=== PATIENT | female | born 1955 | race Caucasian/White ===

== ENCOUNTER 2017-01-03 11:54 | Inpatient (IN) | payer OTHER ==
[~2017-01-03] VITALS: Ht 160 cm; Wt 108.9 kg
[~2017-01-03 11:54] MED LIST: ALEVE220 M1 PO; AMOXICILLIN875 MG PO; ASPIRIN EC81 MG PO; ATENOLOL25 MG PO; CITALOPRAM HBR20 MG PO; CYCLOBENZAPRINE10 MG PO; METFORMIN HCL500 MG PO; MOBIC7.5 MG PO; NORCO 5-325 TA1 EACH PO; PENICILLIN V P500 MG PO; PRAVACHOL20 MG PO; PREVACID30 MG PO; TRAMADOL HCL50 MG PO; TRAZODONE HCL50 MG PO; ULTRAM50 MG PO
[2017-01-21] MEDS ORDERED: ALPRAZOLAM0.25 MG PO (15:03)
[2017-01-21] MEDS ORDERED: VITAMIN D32000 UNIT PO (15:03)
[2017-01-21] MEDS ORDERED: METOPROLOL SUCC25 MG PO (15:04)
--- NOTE | 2017-01-29 08:01 | NUR ---
PREADMIT PT CARE NOTE THIS IS A 61 YEAR OLD FEMALE SCHEDULED FOR A LEFT TOTAL KNEE REPLACEMENT ON 02/04/[address] BLAZE CR. PT STATES SHE LIVES BY HERSELF IN A ONE STORY HOME WITH A HANDICAP RAMP. HAS A TUB/SHOWER COMBINATION WITH A HANDHELD SHOWER HEAD. GOING TO GET A SHOWER SEAT. SHE ALSO STATES SHE IS GETTING A FRONT WHEELED WALKER AT [facility]. IS PLANNING ON DOING OUTPT PT AT [facility], HAS NOT BEEN TO VISIT THEM YET BUT IS GOING TO BEFORE SURGERY. DENIED FURTHER QUESTIONS AT THIS TIME. WILL FOLLOW PT WHILE SHE IS IN THE HOSPITAL. STEPHIE [employer] INTERPRETERSPECIAL EDUCATION AIDE CASE MANAGEMENT
--- NOTE | 2017-02-04 08:52 | NUR ---
02/04/17 0852 Flavia Gonzales 6198-PATIENT ARRIVED TO PACU ON 6L MASK O2 SAT 98% NASAL AIRWAY IN PLACE AND REMOVED. PATIENT AWAKE DENIES PAIN OR NAUSEA. DRESSING TO LEFT KNEE CDI. PALPABLE PEDAL PULSE AND GOOD CAP REFILL WITH WARMTH. PATIENT DENIES PAIN OR NAUSEA. SPINAL LEVEL AT T10.
--- NOTE | 2017-02-04 09:25 | NUR ---
Patient arrives in bed from recovery room. Patient is awake and alert, denies pain. Patient oriented to bed controls and call light. Patient has no sensation from mid thigh to toes on bilat lower extremeties. Cryo cuff in place to left knee. Dressing in place with no drainage. Patient placed on continous pulse ox. O2 sats 92% on Room air. Patiet given ice water and jello. No other requests at this time.
--- NOTE | 2017-02-04 10:02 | NUR ---
PLACED PT ON 2L NC SATS 90% ON ROOM AIR WHEN AWAKE.
--- NOTE | 2017-02-04 10:16 | NUR ---
PATIENT MEDICATED WITH 10MG NUBAIN SUBQ FOR ITCHING. PATIENT GIVEN CLEAR LIQUIDS.
--- NOTE | 2017-02-04 10:33 | NUR ---
Patient eating jello, denies nausea. Patient given menu and instructions to order food.
--- NOTE | 2017-02-04 10:57 | NUR ---
ASSISTED PATIENT TO ORDER LUNCH. PATIENT HAS NO SENSATION FROM MED CALF TO TOES BILAT. PATIENT DENIES PAIN. DRESSING TO LEFT KNEE CDI.
--- NOTE | 2017-02-04 11:16 | NUR ---
patient now has sensation to her toes. Denies pain. Watching tv in no distress.
--- NOTE | 2017-02-04 12:47 | NUR ---
Patient incontinant of urine. Patient still numb in her feet.
--- NOTE | 2017-02-04 13:12 | NUR ---
Patient up to chair. Cony care done, placed patient in clean attends. Changed bed linens and gown. Patient was incontinant of large amount of urine.
--- NOTE | 2017-02-04 14:41 | NUR ---
DR STATON IN TO SEE PATIENT. PATIENT AWAKE AND ALERT, ABLE TO ANSWER ALL QUESTIONS. PATIENT HAS NO PAIN AT THIS TIME. CMS INTACT. PATIENT HAS FULL SENSATION TO LE. DRESSING TO LEFT KNEE CDI.
--- NOTE | 2017-02-04 16:25 | NUR ---
CHECKED ON PT AND SHE WAS DOING FINE, FILLED HER CRY CUFF, AND GOT HER A CUP OF COFFEE. PT WAS IN THE ROOM TALKING TO HER WHEN I LEFT, CALL LIGHT IN REACH
--- NOTE | 2017-02-04 17:44 | NUR ---
PATIENT HAS ASKED FOR PAIN MEDS, THEN REFUSED MED WHEN BROUGHT. PATIENT STATES "I ONLY CAN BARELY FEEL ANYTHING, I RATE MY PAIN ZERO" PATIENT ALSO REFUSES NICOTINE PATCH, HOWEVER ASKS FOR A WHEELCHAIR TO GO OUTSIDE AND SMOKE. DISCUSSED NON SMOKING POLICY WITH PATIENT.
--- NOTE | 2017-02-04 18:32 | NUR ---
PATIENT HAS DONE WELL TODAY. PATIENT HAS BEEN OOB WITH RN AND PT. PATIENT HAS HAD NO PAIN. PATIENT IS TOLERATING A REGULAR DIET.
--- NOTE | 2017-02-04 18:53 | OR ---
[facility] [address] [place], [place] [address] Signed DATE OF OPERATION: 02/04/2017 SURGEON: Telly Huerta MD PREOPERATIVE DIAGNOSIS: DJD, left knee, severe. POSTOPERATIVE DIAGNOSIS: DJD, left knee, severe. PROCEDURE PERFORMED: Left total knee arthroplasty with computer navigation. SURGEON: Telly Huerta MD ASSISTANTS: 1. Nichol Garcia PA-C. 2. KALYANI Shukla. Nichol was present for the entire surgery and was critical for positioning, retraction and wound closure. ANESTHESIA: Spinal. BLOOD LOSS: Minimal. TOURNIQUET TIME: 57 minutes. IMPLANTS: Job Triathlon size 5 with 11 mm insert and a 32 mm patella. BRIEF HISTORY: Eda is a 61-year-old female with progressive worsening of severe arthritis. She had undergone nonoperative treatment including injections, bracing and anti-inflammatories without substantial relief. Risks, benefits and alternatives were discussed with her and she elected to proceed. Electronically Signed By: TELLY HUERTA MD 02/04/17 1853 PATIENT NAME: EDA HUYNH [facility] OPERATIVE REPORT DATE OF : 51 PHYSICIAN: TELLY HUERTA MD REPORT #: [id number] REPORT IS CONFIDENTIAL AND NOT TO BE RELEASED WITHOUT AUTHORIZATION [facility] [address] [place] [id number] Signed DESCRIPTION OF PROCEDURE: Once consent was obtained, she was taken to the operating room after adequate anesthesia and placed on the operating room table. All downside pressure points were well padded. The leg was placed in a well-padded proximal thigh tourniquet. Leg was exsanguinated using an Esmarch bandage. Tourniquet inflated to 270 mmHg. The prior incision for her lateral meniscectomy, which was done many years ago, was marked out. This was quite lateral and elected to go with a straight midline incision crossing the inferior aspect of the old incision at the T. the incision was made and carried through skin and subcutaneous tissue. Median parapatellar arthrotomy was performed. The infrapatellar fat pad was excised and the MCL was elevated to sleeve around the posterior medial corner. The ACL was transected. PCL was left intact. It was in good shape. The menisci were removed. The knee was flexed. The navigation guide was pinned to the distal femur and the femur was registered with the computer. The distal femoral cutting block was then pinned in neutral alignment and the distal femoral cut was made. All osteophytes were removed. The distal femur sized to 5, and a 5-AP cutting block was pinned in line with the epicondylar axis and the anterior posterior chamfer cuts were made. Again, all bone pieces were removed. The attention was turned to proximal tibia. The navigation guide was pinned to the proximal tibia and the cutting block was then pinned to neutral alignment and the cut was made with care taken to protect the patellar tendon and MCL. The bone was removed as were any meniscal remnants. Posterior osteophytes were removed off the femur and posterior release performed. The flexion-extension gaps were sized and found to be symmetric at 11 mm. The trials were then positioned. She was taken through range of motion and found to be stable. The patella was cut, sized and drilled for a 32 patella. The distal femoral holes were drilled. The trial was removed. Proximal tibia was finished using the keel punch and all bone surfaces were pulse lavaged and packed with dry Ray-Milena. Cement was mixed and reached proper consistency. The antibiotic cement was placed on all implants and all bone surfaces. Tibia was impacted in position first and the remaining cement was removed. The polyethylene was snapped into position and the femur was impacted. Once again, any cement was removed. The knee was extended and nicely loaded. The patella was clamped into position. All excess cement was removed. The periarticular soft tissues were injected with 100 mL of ropivacaine and Toradol mixture. The cement was allowed to harden. Once the cement hardened sufficiently, the knee was flexed. The remaining cement was removed using the osteotomes. The knee was pulse lavaged at intervals throughout the procedure. A total of 3 liters of antibiotic irrigation was used. The arthrotomy was then closed using #2 Stratafix, the subcutaneous tissue with #1 Stratafix and niharika for the skin. Knee was dressed with Mepilex Ag dressing, ABD and Jeet wrap. She was awakened and taken to the recovery room in satisfactory condition. All sponge, needle, and instrument counts were correct. Electronically Signed By: TELLY HUERTA MD 02/04/17 1360 PATIENT NAME: EDA HUYNH OPERATIVE REPORT DATE OF : 51 PHYSICIAN: TELLY HUERTA MD REPORT #: [id number] REPORT IS CONFIDENTIAL AND NOT TO BE RELEASED WITHOUT AUTHORIZATION [address] [address] Signed Telly Huerta MD BA/MODL /[id number] Electronically Signed By: TELLY HUERTA MD 02/04/17 1853 PATIENT NAME: EDA HUYNH [facility] O[facility] REPORT DATE OF : 51 PHYSICIAN: TELLY HUERTA MD REPORT #: [id number] REPORT IS CONFIDENTIAL AND NOT TO BE RELEASED WITHOUT AUTHORIZATION
--- NOTE | 2017-02-04 19:15 | NUR ---
RECEIVED REPORT FROM RN. PATIENT RESTING COMFORTABLY. DENIES NEEDS AT THIS TIME. CALL LIGHT WITHIN REACH.
--- NOTE | 2017-02-04 19:42 | NUR ---
PT SITTING UP IN BED, WATCHING TV. PT PLEASENT AND VERY TALKATIVE. NO APPARENT DISTRESS AT THIS TIME. TEDS, SCD'S, COLD CRYO CUFF, AND HEEL PROTECTORS IN PLACE. DRESSING IS CLEAN DRY AND INTACT, NO SHADOWING. LOCKED KNEES FLAT IN BED. CONTINUOUS PULSE OXIMETER IN PLACE. PT COMPLAINED OF 3/10 PAIN, STATED "ITS JUST NOW STARTING TO ACHE A LITTLE." GAVE SCHEDULED TORADOL AND OXYCODONE. PT HAS CRACKERS AT BEDSIDE. FRESH ICE WATER GIVEN. CALL LIGHT IN REACH.
--- NOTE | 2017-02-04 21:56 | NUR ---
REFILLED CRYO CUFF.
--- NOTE | 2017-02-05 00:44 | NUR ---
PATIENT IS RESTING COMFORTABLY IN BED, BREATHING IS EVEN AND UNLABORED. O2 SAT IS 95% ON RA, PULSE IS 57. REPORTS 3/10 PAIN IN LEFT KNEE, PRN PAIN MEDICATION GIVEN PER EMAR. DENIES OTHER NEEDS AT THIS TIME. ALL ORDERS IN PLACE, CRYOCUFF STILL HAS ICE IN IT. CALL LIGHT WITHIN REACH.
--- NOTE | 2017-02-05 01:58 | NUR ---
PT APPEARED TO BE SLEEPING WHEN ENTERING ROOM, WOKE EASILY TO RN'S VOICE. PT REPORTS 2/10 PAIN, STATES "ITS BETTER NOW, BUT I CAN STILL KIND OF FEEL IT," AND POINTED AT HER LEFT UPPER THIGH. GAVE SCHEDULED TORADOL AND OXYCODONE FOR PAIN. PT UP TO BATHROOM TO VOID, TOLERATED AMBULATING WELL WITH FWW AND STANDBY ASSIST, STEADY ON FEET. PT BACK IN BED. ALL DR CR ORDERS IN PLACE. GAVE FRESH ICE WATER. CALL LIGHT IN REACH.
--- NOTE | 2017-02-05 02:38 | NUR ---
PATIENT IS RESTING COMFORTABLY IN BED, BREATHING IS EVEN AND UNLABORED ON NA. O2 SAT IS 95%. REPORTS 2/10 PAIN AFTER AMBULATION TO BATHROOM WITH RN AMEE. DENIES NEEDS AT THIS TIME. ASSESSMENT DONE. ALL ORDERS IN PLACE, SATISFACTORY AMOUNT OF ICE IN CRYOCUFF, CALL LIGHT WITHIN REACH.
--- NOTE | 2017-02-05 02:41 | NUR ---
GAVE 12.25 MG OF BENEDRYL DUE TO PATIENT REPORTING MILD ITCHING. WILL MONITOR FOR CONTINUED ITCHING.
--- NOTE | 2017-02-05 03:44 | NUR ---
PATIENT REPORTING 0/10 PAIN. BREATHING IS EVEN AND UNLABORED WITH 14 BREATHES PER MINUTE, O2 SAT IS 95% ON RA, PULSE IS 67. DENIES NEEDS AT THIS TIME. ALL ORDERS IN PLACE, CALL LIGHT WITHIN REACH.
--- NOTE | 2017-02-05 05:47 | NUR ---
PATIENT'S NIGHT WAS UNEVENTFUL. SHE HAS BEEN RESTING COMFORTABLY IN BED THROUGHOUT SHIFT. VSS, PAIN HAS BEEN WELL CONTROLLED WITH SCHEDULED AND PRN MEDICATIONS. PAIN WAS REPORTED NO HIGHER THAN A 3 IN LEFT KNEE ALL NIGHT. PATIENT REPORTED ITCHING X1, PRN DOSE OF BENEDRYL GIVEN WITH ADEQUATE RELIEF. SHE IS TOLERATING AMBULATION TO BATHROOM WELL WITH SBA/FWW/NON-SLIP SOCKS. DRESSING REMAINS CDI, CMS INTACT. NO COMPLAINTS OF NAUSEA. THERE WERE NO ACUTE CHANGES FROM BEGINNING OF SHIFT.
--- NOTE | 2017-02-05 07:12 | NUR ---
pt complained of 2/10 pain, states "it is a zero when i am still, but as soon i move it starts to hurt. gave norco prn for pain. also gave pt incentive spirometer, and educated on correct use and why its important. pt demonstrated correct use.
--- NOTE | 2017-02-05 07:45 | NUR ---
PT SITTING UP IN BED ALERT AND REPORTS NO PAIN AT REST. NO NAUSEA. ITCHING HAS IMPROVED. PT HAS NO REQUESTS AT THIS TIME. CRYO CUFF FRESHLY FILLED WITH ICE, DRESSING CDI.
--- NOTE | 2017-02-05 08:11 | NUR ---
IN TO ASSESS PT AND DISCUSS CARE PLAN WITH PT.
--- NOTE | 2017-02-05 09:28 | NUR ---
ONE PERSON ASSIST WITH FWW TO BATHROOM. BED BATH DONE. ORAL CARE AND LINEN CHANGE DONE. PATIENT SITTING UP IN CHAIR WITH LEGS UP AND CRYO CUFF ON. CALL BUTTON IN REACH. NO OTHER NEEEDS AT THIS TIME.
--- NOTE | 2017-02-05 11:40 | NUR ---
PT WAS SITTING IN CHAIR READING. SHE IS ALERT, ORIENTED AND SEEMS VERY PLEASANT. SHE MENTIONED PAIN HAS BEEN AN ISSUE, BUT SEEMS TO BE MORE UNDER CONTROL NOW. PT REQUESTED TO SEE THE [facility]RIED SALT TODAY. I MENTIONED TO [facility]. [facility] AND SHE WILL PASS INFO ON.
--- NOTE | 2017-02-05 11:44 | NUR ---
PT SITTING UP IN RECLINER REPORTS PAIN IS WELL MANAGED AT THIS TIME. EATING LUNCH.
--- NOTE | 2017-02-05 13:20 | NUR ---
patient up working with PT.
--- NOTE | 2017-02-05 15:24 | NUR ---
PT REPORTS PAIN 4/10, BUT IS UNCOMFORTABLE. PT ADMISNTERED TABS OF [place] AT THIS TIME. VANESSA BANSAL.
--- NOTE | 2017-02-05 16:00 | NUR ---
PT RESTING IN BED EYES CLOSED RR EVEN AT 18 BPM NO DISTRESS NOTED. PT APPEARS TO BE SLEEPING.
--- NOTE | 2017-02-05 16:30 | NUR ---
PATIENT RESTING IN BED WITH EYES CLOSED. CALL BUTTON IN REACH.
--- NOTE | 2017-02-05 17:21 | NUR ---
PT HAS BEEN UP WITH PHYSICAL THERAPY TWICE TODAY, TOLERATING REGULAR DIET NO NAUSEA. PAIN WELL MANAGED WITH SCHEDULED 5MG OXYCODONE AND NORCO PRN IN BETWEEN WILL NEED TO MONITOR TYLENOL INTAKE. FLATUS POSITIVE. DRESSING CLEAN DRY INTACT. PT AMUBLATES ONE PERSON KAREN ASSIST WITH FWW, STEADY GAIT. CRYO CUFF, SCDS, HEEL PROTECTORS AND TEDS IN PLACE.
--- NOTE | 2017-02-05 17:44 | NUR ---
PT REPORTS PAIN 6/10 AT THIS TIME SITTING UP IN BED EATING DINNER. WILL CALL TO ADJUST PAIN PLAN/MEDICATIONS
--- NOTE | 2017-02-05 19:00 | NUR ---
PATIENT RESTING IN BED WATCHING TV. FRESH ICE WATER GIVEN. CALL BUTTON IN REACH. NO OTHER NEEDS AT THIS TIME. ICE IN CRYO.
--- NOTE | 2017-02-05 21:45 | NUR ---
PT LAYING IN BED, WATCHING TV. ALERT AND ORIENTED X4. PLEASENT DEMEANOR, VERY TALKATIVE. DRESSING TO RIGHT KNEE IS CLEAN DRY AND INTACT. PT RATES PAIN AT 5/10, WILL ADMINISTER SCHEDULED PAIN MEDICATION. TEDS, SCD'S, CRYOCUFF FILLED WITH ICE, AND HEEL PROTECTORS ALL IN PLACE. PT REPORTS USING INCENTIVE SPIROMETER THROUGHOUT THE DAY. GAVE FRESH ICE WATER.
--- NOTE | 2017-02-05 22:05 | NUR ---
GAVE SCHEDULED TYLENOL AND OXYCODONE FOR PAIN RATED AT 5/10. NO APPARENT DISTRESS AT THIS TIME. CALL LIGHT IN REACH. PT HAS NO FURTHER NEEDS AT THIS TIME.
--- NOTE | 2017-02-05 22:39 | NUR ---
ASSISTED PATIENT TO THE BATHROOM AND BACK TO BED WITH WALKER. CRYO CUFF AND SCDS BACK ON. CALL LIGHT WITHIN REACH.
--- NOTE | 2017-02-05 23:36 | NUR ---
PT APPEARS TO BE SLEEPING. RR WNL AND UNLABORED. LIGHTS AND TV OFF IN ROOM.
--- NOTE | 2017-02-06 00:50 | NUR ---
PT INCONTINENT OF URINE IN BED. PT UP TO BATHROOM TO VOID MORE. TOLERATED AMBUALTING TO BATHROOM WITH STANDBY ASSIST AND USING FWW WELL. CHANGED LINENS AND ASSISTED PT CHANGE GOWN. PT BACK TO BED. GAVE NORCO FOR 5/10 PAIN IN LEFT LEG, PT REPORTS PAIN IN RIGHT THIGH. CRYO CUFF FILLED WITH ICE. FRESH ICE WATER AT BEDSIDE. CALL LIGHT IN REACH. PT STATES "SLEPT VERY WELL BEFORE I WOKE UP WET." NO FURTHER NEEDS AT THIS TIME. ALL DR CR ORDERS IN PLACE.
--- NOTE | 2017-02-06 01:06 | NUR ---
ASSISTED PATIENT TO THE BATHROOM AND BACK TO BED WITH WALKER. PATIENT HAD ACCIDENT VOIDED IN BED. CRYO CUFF, SCDS HEEL PROTECTOR BACK ON. CALL LIGHT WITHIN REACH.
--- NOTE | 2017-02-06 02:53 | NUR ---
PT APPEARED TO BE SLEEPING WHEN ENTERING ROOM. LIGHTS AND TV OFF. PT WOKE EASILY TO RN VOICE. PT RATES PAIN AT 4/10, STATES "ITS GETTING BETTER", GAVE SCHEDULED OXYCODONE FOR PAIN. NO FURTHER NEEDS. CALL LIGHT IN REACH.
--- NOTE | 2017-02-06 04:30 | NUR ---
PT WOKE WHEN RN IN ROOM TO CHECK ON HER. PT CONTINUES TO REPORT A 4/10 PAIN IN HER LEFT LEG. PT STATES "ITS JUST A CONSTANT ACHE, IT IS GETTING BETTER AND BETTER THOUGH." GAVE PRN DILLANCO TO STAY AHEAD OF PT'S PAIN. FRESH ICE WATER. CALL LIGHT IN REACH.
--- NOTE | 2017-02-06 05:17 | NUR ---
PT SLEPT MAJORITY OF SHIFT. PAIN CONTROLLED WITH SCHEDULED AND PRN PAIN MEDCIATIONS. DRESSING TO LEFT KNEE IS CLEAN DRY AND INTACT. PT AMBUALTES WELL WITH FWW AND STANDBY ASSIST, FOLLOWS DIRECTIONS WELL. ALERT AND ORIENTED X4. PLEASENT DEMEANOR. USES CALL LIGHT APPROPRIATLY. ALL DR CR ORDERS IN PLACE. PT INCONTINENT OF URINE AND BM OVERNIGHT, DEPENDS AND CHUX IN PLACE. NO NAUSEA. NO PRURITIS.
--- NOTE | 2017-02-06 05:37 | NUR ---
PATIENT HAD ACCIDENT VOID AND BOWEL MOVEMENT, ASSISTED TO THE BATHROOM AND CLEANED UP. PATIENT IS BACK TO BED. CALL LIGHT IS WITHIN REACH, CRYO CUFF REFILLED.
--- NOTE | 2017-02-06 05:46 | NUR ---
PT COMPLAINED OF 6/10 PAIN AGAIN, SHE WAS JUST UP TO THE BATHROOM AND WAS INCONTINENT OF BM AND URINE, APPEARS MORE EMOTIONALLY UPSET THAN PAIN AT THIS TIME. GAVE SCHEDULED PAIN MEDICATIONS. PT TALKING ABOUT HER WHO RECENTLY , TEARFUL. AFTER TALKING A FEW MINUTES PT SEEMED BETTER. PT HAS NO FURTHER NEEDS. CALL LIGHT IN REACH. CRYO CUFF FILLED WITH ICE.
--- NOTE | 2017-02-06 06:53 | NUR ---
PT APPEARS TO BE SLEEPING. RR WNL AND UNLABORED. LIGHTS AND TV OFF IN ROOM.
--- NOTE | 2017-02-06 08:15 | NUR ---
PT UP TO BATHROOM THIS AM, EMOTIONAL ABOUT PASSING, NOT HERE TO SUPPORT HER. PT REPORTS PAIN IS 8/10, NORCO GIVEN WITH AM MED PASS. PT THEN REPORTS SHE NEEDS TO HAVE ANOTHER BM, PT BACK UP FROM RECLINER TO BATHROOM. PT REPORTS NO APPETITE THIS AM. RN ENCOURAGED TO TRY TO EAT SMALL AMOUNT IF POSSIBLE.
--- NOTE | 2017-02-06 08:45 | NUR ---
STAND BY ASSIST PATIENT WITH FWW TO BATHROOM. ORAL CARE DONE. HANDS AND FACE WASHED. PT IN TO WORK WITH PATIENT.
--- NOTE | 2017-02-06 11:00 | NUR ---
CALLED TO DISCUSS PAIN MANAGEMENT, PT REPORTS PAIN 6/10 AT REST. NEW ORDERS GIVEN
--- NOTE | 2017-02-06 11:02 | NUR ---
PATIENT RESTING IN BED WITH EYES CLOSED. FRESH ICE WATER GIVEN. CALL BUTTON IN REACH. NO OTHER NEEDS AT THIS TIME.
--- NOTE | 2017-02-06 11:30 | NUR ---
PT RESTING IN BED EYES CLOSED RR EVEN AT 16 BPM NO DISTRESS NOTED. PT APPEARS TO BE SLEEPING AT THIS TIME.
--- NOTE | 2017-02-06 11:45 | NUR ---
RN IN TO ASSIST PATIENT FROM BATHROOM.
--- NOTE | 2017-02-06 11:45 | NUR ---
PT CALLED NURSES STATION NEEDS TO GET UP TO VOID, AND HAVE BM. BM LOOSE, COLLECTED AND SENT OT LAB FOR C.DIFF PER ORDER THIS AM. PT REPORTS PAIN 08/15. PT ADMINSITERED 2MG PO DILAUDID AT THIS TIME WILL MONITOR.
--- NOTE | 2017-02-06 13:37 | NUR ---
PT UP WITH PHYSICAL THERAPY AT THIS TIME. AMBULATED TO PHYSICAL THERAPY ROOM REPORTS PAIN HIGH, PT REPORTS HER ANXIETY IS HIGH. AT THIS TIME
--- NOTE | 2017-02-06 14:00 | NUR ---
PATIENT WORKING WITH PT.
--- NOTE | 2017-02-06 14:00 | NUR ---
PATIENT WORKING WITH PT.
--- NOTE | 2017-02-06 14:07 | NUR ---
UPDATED ON PT, PAIN AND ANXIETY, AND PROGRESS ON CARE PLAN
--- NOTE | 2017-02-06 14:15 | NUR ---
PATIENT RESTING IN BED WITH EYES CLOSED. FRESH ICE WATER GIVEN. ICE IN CRYO. CALL BUTTON IN REACH.
--- NOTE | 2017-02-06 14:23 | NUR ---
PT RESTING IN BED EYES CLOSED AT THIS TIME. RR EVEN AT 16 BPM, ALERT TO NAME. PT REPORTS KNEE STILL HURTS, NO NUMBER GIVEN FOR PAIN PT FELL BACK TO SLEEP EASILY, WILL MONITOR BEFORE GIVING MORE NARCOTICS AFTER GIVEN ALPRAZOLAM FOR ANXIETY.
--- NOTE | 2017-02-06 15:21 | NUR ---
ONE PERSON ASSIST WITH FWW TO BATHROOM. BED BATH DONE. PATIENT BACK TO BED. CALL BUTTON IN REACH. ICE IN CRYO. NO OTHER NEEDS AT THIS TIME.
--- NOTE | 2017-02-06 15:55 | NUR ---
PT REPORTS 4/10 AT REST, THEN SHE ADJUSTED IN BED, REPORTED PAIN 6/10. ADMINSTERED SCHEDULED OXYCODONE 10 MG AT THIS TIME, AND SCHEDULED TYLENOL. THEN MEDS WHERE SCHEDULED FOR 1400. HELD UNITL KNOW TO MONITOR SEDATION. PT ALERT AND ORIENTED AT THIS TIME. REPORTS FEEL LESS STRESSED WELL.
--- NOTE | 2017-02-06 17:38 | NUR ---
PT NOW REPOTR PAIN IS 1/10 AT REST AND 2/10 UP AMBULATING TO BATHROOM. PT IS ALERT AND ORIENTED SITTING AT BEDSIDE TO EAT DINNER.
--- NOTE | 2017-02-06 17:44 | NUR ---
CALLED UPDATE ON PT STATUS/CARE PLAN. NEW ORDER TO CHANGE OXYCODONE FROM Q4 TO Q6.
--- NOTE | 2017-02-06 18:50 | NUR ---
PT CONSUMED HER DINNER AND REPORTS SHE IS NOW SLEEPY AND PLANS TO TAKE A NAP. REPORTS PAIN IS GOOD AND SHE DOES NOT FEEL ANXIOUS AT THIS TIME.
--- NOTE | 2017-02-06 20:00 | NUR ---
RECEIVED REPORT AT 1900. FOUND PT IN BED SLEEPING AND VERY DROWSEY. PT ADMITTED THAT SHE WAS DROWSEY. WILL HOLD THE 2000 SCHEDULED 10MG OXYCODONE FOR NOW.
--- NOTE | 2017-02-06 20:45 | NUR ---
PATIENT IN BED ASLEEP. DOING WELL. WHITEBOARD UPDATED, ROOM TIDIED.
--- NOTE | 2017-02-06 21:16 | NUR ---
CRYO CUFF REFILLED
--- NOTE | 2017-02-06 22:00 | NUR ---
V/S ARE WDL, ALL LOBES ARE CLEAR, LEFT DORSALIS PEDIS IS +2, STRENGTH ON LLE IS +4, MINIMAL EDEMA NOTED ON LLE, DRESSING IS C/D/I, ICE TO SX-SITE, PT RECEIVED SCHEDULED OXY 1 HR LATE DUE TO DROWSINESS. PT DOES NOT SEEM ANXIOUS AT THIS TIME.
--- NOTE | 2017-02-07 00:17 | NUR ---
PT IS SLEEPING AT THIS TIME.
--- NOTE | 2017-02-07 00:17 | NUR ---
PT IS SLEEPING AT THIS TIME.
--- NOTE | 2017-02-07 00:20 | NUR ---
PATIENT IN BED ASLEEP.
--- NOTE | 2017-02-07 00:54 | NUR ---
PT UP TO BATHROOM TO VOID. TOLERATED AMBULATING WELL WITH FWW AND STANDBY ASSIST. PT BACK IN BED, RATES PAIN AT "ABOUT A 2" OUT OF 10, REFUSED PAIN MEDICATIONS. CRYO CUFF IN PLACE AND FULL OF ICE. PT COMPLAINED OF INSOMNIA, GAVE TRAZADONE FOR SLEEP. PT HAS CALL LIGHT. NO FURTHER NEEDS.
--- NOTE | 2017-02-07 02:44 | NUR ---
PT HAS NO CHANGE IN STATUS SINCE START OF THIS SHIFT. LEFT DORSALIS PEDIS IS +2, DRESSING IS C/D/I. PT DENIES PAIN AT THIS TIME, SCHEDULED OXYCODON 10MG NOT GIVEN.
--- NOTE | 2017-02-07 03:35 | NUR ---
REFILLED CRYO CUFF WITH ICE
--- NOTE | 2017-02-07 04:01 | NUR ---
PT CALLED NURSES STATION REQUESTING "SOMETHING FOR PAIN." PT RATES PAIN AT 6/10, STATES "AFTER I GOT BACK FROM THE BATHROOM, THE PAIN JUST SHOT UP, I WAS FINE BEFORE THAT." GAVE PT PRN DILAUDID FOR PAIN. NO FURTHER NEEDS. CALL LIGHT IN REACH.
--- NOTE | 2017-02-07 05:12 | NUR ---
PT RECEIVED SOME IV DILAUDED FROM GRANULATING MACHINE OPERATOR. PT AT THIS TIME IS IN THE BATHROOM.
--- NOTE | 2017-02-07 05:35 | NUR ---
PT HAD SLIGHTLY ELEVATED TEMP, INSTRUCTED PT USING INCENTIVE SPIROMETER, TEMP NOW WNL. ASSISTED PT TO RESTROOM TO VOID. NO IN SITTING UP IN CHAIR WATCHING TV. CRYO CUFF IN PLACE. CALL LIGHT IN REACH. FRESH WATER GIVEN.
[2017-02-07] MEDS ORDERED: XARELTO10 MG PO (07:12)
[2017-02-07] MEDS ORDERED: HYDROMORPHONE HC2 MG PO (07:12)
[2017-02-07] MEDS ORDERED: OXYCODONE HCL5 MG PO (07:13)
--- NOTE | 2017-02-07 07:20 | NUR ---
BEDSIDE REPORT RECEIVED FROM SABA TURNER. PT IS AWAKE IN BED, SCD'S, HEEL PROTECTORS, HEAVENLY HOSE, CRYO CUFF IN PLACE. MEPLILEX CLEAN, DRY, INTACT ON LEFT KNEE. PT STATES PAIN IS 2/10 AT THIS TIME, "TOLERABLE". PT HAS CALL LIGHT IN REACH. NO ADDITIONAL REQUESTS AT THIS TIME. PT STATES SHE IS READY TO GO HOME.
--- NOTE | 2017-02-07 09:19 | NUR ---
PT OUT OF ROOM, WALKING WITH PHYSICAL THERAPY. REPORTS PAIN OF 1.5/10 AT THIS TIME. STATES HER LEG IS "SORE".
--- NOTE | 2017-02-07 10:00 | NUR ---
PT ASSESSMENT COMPLETE. PT'S LEFT KNEE COVERED WITH MEPILEX, GAUZE, CLEAN, DRY INTACT. CSM INTACT BILATERALLY UPPER AND LOWER. NO EDEMA NOTED. PT IS ALERT, ORIENTED. ADMINISTERED 5MG ORDERED OXYCODONE PER PT REQUEST FOR 1/2 TABLETS IT MAKES HER DROWSY. REPORTED PAIN, 4/10 IN LEFT LEG AFTER WORKING WITH PHYSICAL THERAPY. PT HAS CALL LIGHT.
--- NOTE | 2017-02-07 10:00 | NUR ---
PT WAS GIVEN A WARM WASH CLOTH FOR FACE AND HANDS. PT HAD ORAL CARE DONE AND WAS DRESSED IN HER OWN CLOTHES WAITNING TO BE DISCHARGED.
--- NOTE | 2017-02-07 12:56 | NUR ---
CONNECTED WITH PT SHE WAS HEADING DOWN THE [place] IN W.CHAIR TO THE WAITING CARE RIDE CAB. SHE WAS IN GOOD SPIRITS, I ENCOURAGED HER TO CONTINUE HER P.T. SHE MENTIONED THAT SHE WILL HAVE HOME HEALTH FOR A COUPLE OF WEEKS. SHE HAS RECENTLY LOST HER , AND IS FEELING VERY ALONE. I SHARED A FEW WORDS AND SCRIPTURES WITH HER OF ENCOURAGEMENT. SHE SEEMED VERY THANKFUL. EXTENDED A BLESSING TO HER
--- NOTE | 2017-02-11 07:18 | DS ---
[facility] [address], [place] [address] Signed ADMISSION DATE: 02/04/2017 DISCHARGE DATE: 02/07/2017 ADMISSION DIAGNOSIS: DJD, left knee. DISCHARGE DIAGNOSIS: DJD, left knee. PROCEDURE PERFORMED: Left total knee arthroplasty. BRIEF HISTORY: Eda is a 61-year-old female with severe arthritis of her knee. She had undergone nonoperative treatment without substantial relief. Risks, benefits, and alternatives of operative treatment were discussed with her and she elected to proceed. DESCRIPTION OF PROCEDURE: Once consent was obtained, she was taken to the operating room, underwent the above-named procedure. She tolerated this well and was taken to the recovery room, subsequently to the orthopedic floor. She was initially placed on oral pain medication of oxycodone 5 and Institute, however she was taking quite a bit of pain medication. Ultimately, it was decided that this was more of an anxiety issue than it was the pain issue, however, pain medication was changed to oxycodone 10 q.6h and Dilaudid to 4 mg p.r.n. She did well with this and her usual anxiety medicine. She was seen by Physical Therapy, able to ambulate down the andino, up and down stairs by the day of discharge. She will be discharged home with outpatient physical therapy. She will be home bound secondary to poor balance control, weakness, and inability to get around. She will be seeing Physical Therapy for strength training, gait with walker, transfers, and knee range of motion. She will follow up with me in 10-14 days. Should she have any problems, she will notify me sooner. Telly Huerta MD Electronically Signed By: TELLY HUERTA MD 02/11/17 0718 PATIENT NAME: EDA HUYNH DISCHARGE SUMMARY DATE OF : 51 PHYSICIAN: TELLY HUERTA MD REPORT #: [id number] REPORT IS CONFIDENTIAL AND NOT TO BE RELEASED WITHOUT AUTHORIZATION [address] [place], [place] [address] Signed /[facility] /[id number] Electronically Signed By: TELLY HUERTA MD 02/11/17 0718 PATIENT NAME: EDA HUYNH DISCHARGE SUMMARY DATE OF : 51 PHYSICIAN: TELLY HUERTA MD REPORT #: [id number] REPORT IS CONFIDENTIAL AND NOT TO BE RELEASED WITHOUT AUTHORIZATION
--- NOTE | 2017-02-12 16:24 | NUR ---
FAXED CHART NOTES/ORDER TO [facility] FOR HOME HEALTH PT. FAX CONFIRMATION RECEIVED.
== END 2017-02-07 10:24 | disposition home or self-care (01) | DRG 470 ==
LOC: DSVR 02-04 05:30 → MS 02-04 06:45
PROVIDERS: ADMIT Specialist
PROC: 8E0YXBZ Computer Assisted Procedure of Lower Extremity (ICD-10-PCS; 2017-02-04)
PROC: 0SRD0J9 Replacement of Left Knee Joint with Synthetic Substitute, Cemented, Open Approach (ICD-10-PCS; principal; 2017-02-04 06:45)
DX: M17.12 Unilateral primary osteoarthritis, left knee (principal); I10 Essential (primary) hypertension; E78.5 Hyperlipidemia, unspecified; F17.210 Nicotine dependence, cigarettes, uncomplicated; F41.9 Anxiety disorder, unspecified; F51.04 Psychophysiologic insomnia
CPT/HCPCS: 01402; 36415; 64445; 76942; 80048; 85025; 97110; 97116; 97161; 97165; 99406; C1713; C1776; J0690; J1100; J1200; J1885; J2250; J2274; J2300; J2704; J2795; J3010; J7120

== ENCOUNTER 2017-05-05 14:57 | Emergency (ER) | payer OTHER ==
[~2017-05-05] VITALS: Ht 160 cm; Wt 101.6 kg
[~2017-05-05 14:57] MED LIST changes: +ALPRAZOLAM0.25 MG PO; +HYDROMORPHONE HC2 MG PO; +METOPROLOL SUCC25 MG PO; +OXYCODONE HCL5 MG PO; +VITAMIN D32000 UNIT PO; +XARELTO10 MG PO
== END 2017-05-05 16:44 | disposition home or self-care (01) ==
LOC: ED 14:57
DX: J06.9 Acute upper respiratory infection, unspecified (principal); I10 Essential (primary) hypertension; F41.9 Anxiety disorder, unspecified; F32.9 Major depressive disorder, single episode, unspecified; F17.200 Nicotine dependence, unspecified, uncomplicated; Z88.5 Allergy status to narcotic agent; Z79.899 Other long term (current) drug therapy
CPT/HCPCS: 99284

== ENCOUNTER 2019-06-18 11:39 | Emergency (ER) | payer MEDICARE, OTHER ==
[~2019-06-18] VITALS: Ht 160 cm; Wt 108.0 kg
[~2019-06-18 11:39] MED LIST changes: +CEPHALEXIN500 MG PO; +FLOMAX0.4 MG PO; +PERCOCET 5-3251 EACH PO
--- OUTSIDE RECORDS SUMMARY | 2019-06-18 11:42 | XMS ---
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 Care History Medical/Surgical 10/20/2018 [facility] - CHW RECEIVED CASE MANAGEMENT CONSULT- CONCERNS FOR MISUSE OF EMS, ED AND TAXI VOUCHERS. - CHW SPOKE WITH PATIENT. PATIENT STATED SHE RECENTLY HAD INSURANCE CHANGE AND NO LONGER HAS [employer] TRANSPORTATION AVAILABLE. - CHW CONFIRMED PER MMIS PATIENT ONLY HAS [employer] MEDICAID COVERAGE NO TRANSPORTATION AVAILABLE. - PATIENT IS NOW ON THE WAITING LIST WITH [facility] FOR MEDICARE TRANSPORTATION. - PATIENT IS AWARE OF THE SERVICES AND WILL CONTACT CHW IN THE FUTURE FOR CARE RIDE FOR URGENT/EMERGENT SERVICES ONLY. E.D. VISIT COUNT (12 MO.) 3 [facility] TOTAL 3 NOTE: Visits indicate total known visits. ED/UCC VISIT TRACKING (12 MO.) 06/18/2019 11:40 [facility] [place] TYPE: Emergency COMPLAINT: - WEAKNESS 10/18/2018 01:13 [facility] [place] TYPE: Emergency COMPLAINT: - ABDOMINAL PAIN DIAGNOSES: - Acquired absence of other organs - Major depressive disorder, single episode, unspecified - Other custodial (current) drug therapy - Essential (primary) hypertension - Hydronephrosis with renal and ureteral calculous obstruction - Unspecified abdominal pain - Anxiety disorder, unspecified - Allergy status to narcotic agent status 10/14/2018 03:46 [facility] [place] TYPE: Emergency COMPLAINT: - ABD PAIN DIAGNOSES: - Acquired absence of other specified parts of digestive tract - Anxiety disorder, unspecified - Major depressive disorder, single episode, unspecified - Hydronephrosis with renal and ureteral calculous obstruction - Lower abdominal pain, unspecified - 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
[2019-06-18] MEDS ORDERED: ZESTRIL5 MG (12:01)
--- NOTE | 2019-06-19 12:26 | EKG ---
[facility] [address] [facility] [place] [address] Signed Normal sinus rhythm Normal ECG No previous ECGs available Confirmed by CAROLINE STATON MD ([id number]) on 06/19/2019 12:25:54 PM Electronically Signed By: CAROLINE STATON MD 06/19/19 1226 PATIENT NAME: JAMIN HUYNH YAYO Electrocardiogram DATE OF : 51 PHYSICIAN: CAROLINE STATON MD REPORT #: [id number] REPORT IS CONFIDENTIAL AND NOT TO BE RELEASED WITHOUT AUTHORIZATION
== END 2019-06-18 17:08 | disposition home or self-care (01) ==
LOC: ED 11:39
DX: R55 Syncope and collapse (principal); I10 Essential (primary) hypertension; F32.9 Major depressive disorder, single episode, unspecified; F41.9 Anxiety disorder, unspecified; F17.200 Nicotine dependence, unspecified, uncomplicated; Z88.5 Allergy status to narcotic agent; Z79.899 Other long term (current) drug therapy
CPT/HCPCS: 36415; 71045; 80053; 83880; 84484; 85025; 85379; 93005; 93010; 96360; 99284-25; 99406; J7030

== ENCOUNTER 2019-12-03 14:45 | Emergency (ER) | payer MEDICARE, OTHER ==
[~2019-12-03] VITALS: Ht 160 cm; Wt 108.0 kg
[~2019-12-03 14:45] MED LIST changes: +ZESTRIL5 MG
--- OUTSIDE RECORDS SUMMARY | 2019-12-03 14:48 | XMS ---
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 - Has Care Guidelines CARE PROVIDERS YULIANA, [facility] [employer] [facility] 10/15/2018-Current [facility] [facility] PHONE: [phone] Chris has no Care Guidelines for this patient. Care History Medical/Surgical 10/20/2018 [facility] - CHW RECEIVED CASE MANAGEMENT CONSULT- CONCERNS FOR MISUSE OF EMS, ED AND TAXI VOUCHERS. - CHW SPOKE WITH PATIENT. PATIENT STATED SHE RECENTLY HAD INSURANCE CHANGE AND NO LONGER HAS [employer] TRANSPORTATION AVAILABLE. - CHW CONFIRMED PER MMIS PATIENT ONLY HAS [employer] MEDICAID COVERAGE NO TRANSPORTATION AVAILABLE. - PATIENT IS NOW ON THE WAITING LIST WITH [facility] FOR MEDICARE TRANSPORTATION. - PATIENT IS AWARE OF THE SERVICES AND WILL CONTACT CHW IN THE FUTURE FOR CARE RIDE FOR URGENT/EMERGENT SERVICES ONLY. E.D. VISIT COUNT (12 MO.) 2 [facility] TOTAL 2 NOTE: Visits indicate total known visits. ED/UCC VISIT TRACKING (12 MO.) 12/03/2019 14:46 [facility] [place] TYPE: Emergency COMPLAINT: - BACK/LEG PAIN 06/18/2019 11:40 [facility] [place] TYPE: Emergency COMPLAINT: - WEAKNESS DIAGNOSES: - Syncope and collapse - Nicotine dependence, unspecified, uncomplicated - Other chcf (current) drug therapy - Essential (primary) hypertension - Nicotine dependence, cigarettes, uncomplicated - Allergy status to narcotic agent status - Major depressive disorder, single episode, unspecified - Anxiety disorder, unspecified - Dizziness and giddiness INPATIENT VISIT TRACKING (12 MO.) No inpatient visits to display in this time frame [email or web address]
[2019-12-03] MEDS ORDERED: BUSPIRONE HCL10 MG PO (15:26)
[2019-12-03] MEDS ORDERED: ALENDRONATE SOD10 MG PO (15:27)
[2019-12-03] MEDS ORDERED: TRAZODONE HCL150 MG PO (15:28)
[2019-12-03] MEDS ORDERED: CYCLOBENZAPRINE10 MG PO (17:33)
== END 2019-12-03 18:01 | disposition home or self-care (01) ==
LOC: ED 14:45
DX: M54.42 Lumbago with sciatica, left side (principal); I10 Essential (primary) hypertension; F41.9 Anxiety disorder, unspecified; F32.9 Major depressive disorder, single episode, unspecified; F17.200 Nicotine dependence, unspecified, uncomplicated; Z88.5 Allergy status to narcotic agent; Z79.899 Other long term (current) drug therapy
CPT/HCPCS: 99283

== ENCOUNTER 2019-12-15 08:20 | Emergency (ER) | payer MEDICARE, OTHER ==
[~2019-12-15] VITALS: Ht 160 cm; Wt 108.0 kg
[~2019-12-15 08:20] MED LIST changes: +ALENDRONATE SOD10 MG PO; +BUSPIRONE HCL10 MG PO; +TRAZODONE HCL150 MG PO
--- OUTSIDE RECORDS SUMMARY | 2019-12-15 08:22 | XMS ---
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 Care History Medical/Surgical 10/20/2018 [facility] - CHW RECEIVED CASE MANAGEMENT CONSULT- CONCERNS FOR MISUSE OF EMS, ED AND TAXI VOUCHERS. - CHW SPOKE WITH PATIENT. PATIENT STATED SHE RECENTLY HAD INSURANCE CHANGE AND NO LONGER HAS [employer] TRANSPORTATION AVAILABLE. - CHW CONFIRMED PER MMIS PATIENT ONLY HAS [employer] MEDICAID COVERAGE NO TRANSPORTATION AVAILABLE. - PATIENT IS NOW ON THE WAITING LIST WITH [facility] FOR MEDICARE TRANSPORTATION. - PATIENT IS AWARE OF THE SERVICES AND WILL CONTACT CHW IN THE FUTURE FOR CARE RIDE FOR URGENT/EMERGENT SERVICES ONLY. E.D. VISIT COUNT (12 MO.) 3 [facility] TOTAL 3 NOTE: Visits indicate total known visits. ED/UCC VISIT TRACKING (12 MO.) 12/15/2019 08:20 [facility] [place] TYPE: Emergency COMPLAINT: - BACK PAIN 12/03/2019 14:46 [facility] TYPE: Emergency COMPLAINT: - BACK/LEG PAIN DIAGNOSES: - Nicotine dependence, unspecified, uncomplicated - Anxiety disorder, unspecified - Low back pain - Other alf (current) drug therapy - Allergy status to narcotic agent status - Essential (primary) hypertension - Lumbago with sciatica, left side - Major depressive disorder, single episode, unspecified 06/18/2019 11:40 [facility] [place] TYPE: Emergency COMPLAINT: - WEAKNESS DIAGNOSES: - Syncope and collapse - Nicotine dependence, unspecified, uncomplicated - 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
[2019-12-15] MEDS ORDERED: TYLENOL EXTRA500 MG PO (08:29)
== END 2019-12-15 10:10 | disposition home or self-care (01) ==
LOC: ED 08:20
DX: M54.42 Lumbago with sciatica, left side (principal); I10 Essential (primary) hypertension; F41.9 Anxiety disorder, unspecified; F32.9 Major depressive disorder, single episode, unspecified; F17.200 Nicotine dependence, unspecified, uncomplicated; Z88.5 Allergy status to narcotic agent; Z79.899 Other long term (current) drug therapy
CPT/HCPCS: 99283; A9270; J7512

== ENCOUNTER → 2020-08-13 | Emergency (ER) | payer MEDICARE, OTHER ==
[~2020-08-13] VITALS: Ht 160 cm; Wt 108.9 kg
[~2020-08-13] MED LIST changes: +ASPIRIN81 MG PO; +CRUTCH1 EACH MISC; +DICLOFENAC SODI75 MG PO; +HYDROCODON-ACE1 EA10 PO; +TYLENOL EXTRA500 MG PO
--- OUTSIDE RECORDS SUMMARY | 2020-08-13 03:58 | XMS ---
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 Care History Medical/Surgical 10/20/2018 [facility] - CHW RECEIVED CASE MANAGEMENT CONSULT- CONCERNS FOR MISUSE OF EMS, ED AND TAXI VOUCHERS. - CHW SPOKE WITH PATIENT. PATIENT STATED SHE RECENTLY HAD INSURANCE CHANGE AND NO LONGER HAS [employer] TRANSPORTATION AVAILABLE. - CHW CONFIRMED PER MMIS PATIENT ONLY HAS [employer] MEDICAID COVERAGE NO TRANSPORTATION AVAILABLE. - PATIENT IS NOW ON THE WAITING LIST WITH [facility] FOR MEDICARE TRANSPORTATION. - PATIENT IS AWARE OF THE SERVICES AND WILL CONTACT CHW IN THE FUTURE FOR CARE RIDE FOR URGENT/EMERGENT SERVICES ONLY. E.D. VISIT COUNT (12 MO.) 3 [facility] TOTAL 3 NOTE: Visits indicate total known visits. ED/UCC VISIT TRACKING (12 MO.) 08/13/2020 03:53 [facility] [place] TYPE: Emergency COMPLAINT: - RT KNEE PAIN 12/15/2019 08:20 [facility] TYPE: Emergency COMPLAINT: - BACK PAIN/NO INJURY DIAGNOSES: - Lumbago with sciatica, left side - Essential (primary) hypertension - Major depressive disorder, single episode, unspecified - Allergy status to narcotic agent - Nicotine dependence, unspecified, uncomplicated - Other jail (current) drug therapy - Low back pain - Anxiety disorder, unspecified 12/03/2019 14:46 [facility] TYPE: Emergency COMPLAINT: - BACK/LEG PAIN DIAGNOSES: - Nicotine dependence, unspecified, uncomplicated - Anxiety disorder, unspecified - Low back pain - Other jail (current) drug therapy - Allergy status to narcotic agent - Essential (primary) hypertension - Lumbago with sciatica, left side - Major depressive disorder, single episode, unspecified INPATIENT VISIT TRACKING (12 MO.) No inpatient visits to display in this time frame [email or web address]
== END ==
LOC: ED 03:53
DX: M17.11 Unilateral primary osteoarthritis, right knee (principal); I10 Essential (primary) hypertension; F17.200 Nicotine dependence, unspecified, uncomplicated; Z88.5 Allergy status to narcotic agent; Z79.899 Other long term (current) drug therapy; Z79.82 Long term (current) use of aspirin
CPT/HCPCS: 73560; 99283-25